=== PATIENT | male | born 1965 | race Caucasian/White ===

== ENCOUNTER 2022-02-24 16:10 | Emergency (ER) | payer BC ==
[~2022-02-24] VITALS: Ht 180.3 cm; Wt 74.8 kg
[~2022-02-24 16:10] MED LIST: Percocet 5-3251 EACH PO
[2022-02-25] MEDS ORDERED: IBUP200 PO (14:46)
[2022-02-25] MEDS ORDERED: Acetaminophen325 M1 PO (14:47)
== END 2022-02-24 18:46 | disposition home or self-care (01) ==
LOC: ER 16:10
DX: S52.571A Other intraarticular fracture of lower end of right radius, initial encounter for closed fracture (principal); W17.89XA Other fall from one level to another, initial encounter
CPT/HCPCS: 73110; 73200; 76377; A9270; J1885

== ENCOUNTER 2022-02-26 07:55 | Day surgery (SDC) | payer BC ==
[~2022-02-26] VITALS: Ht 180.3 cm; Wt 75.2 kg
[~2022-02-26 07:55] MED LIST changes: +Acetaminophen325 M1 PO; +IBUP200 PO
--- NOTE | 2022-02-26 13:57 | NUR ---
Discharge instructions reviewed with patient. Patient verbalizes understanding. Copy given to patient to take home.
--- NOTE | 2022-02-26 14:12 | NUR ---
Discharged via wheelchair to private car for ride home.
== END 2022-02-26 22:47 | disposition home or self-care (01) ==
LOC: ORSCMMR 07:55 → ORD 10:15 → ORSCMMR 10:15
PROVIDERS: Orthopaedic Surgery
PROC: 0PSH04Z Reposition Right Radius with Internal Fixation Device, Open Approach (ICD-10-PCS; principal; 2022-02-26 11:00)
DX: S52.571A Other intraarticular fracture of lower end of right radius, initial encounter for closed fracture (principal); W17.89XA Other fall from one level to another, initial encounter
CPT/HCPCS: A9270; C1713; J0690; J1100; J2250; J2405; J2704; J3010; J7120